=== PATIENT | male | born 1970 | race Caucasian/White ===

== ENCOUNTER → 2017-09-24 | Outpatient (CLI) | payer OTHER ==
--- NOTE | 2017-09-24 10:38 | DIAGNOSTIC IMAGING REPORT ---
CYSTOGRAM CLINICAL HISTORY: Colovesical fistula COMPARISON STUDY: None FLUOROSCOPY TIME: 1 minute. NUMBER OF FLUOROSCOPIC IMAGES: 9 FINDINGS: The bladder was filled utilized the patient's indwelling Deutsch catheter. Water-soluble contrast was utilized. Imaging was performed in the AP and lateral projections. There was no extravasation. There is no reflux. There were no findings to indicate a colovesical fistula. IMPRESSION: No cystographic evidence of a colovesical fistula Electronically signed by: Mick Rios M.D. 09/24/2017 10:37 AM Dictated Date/Time: 09/24/2017 10:35 AM
== END | disposition home or self-care (01) ==
LOC: C.RAD 09:57
PROVIDERS: ATTEND Colon & Rectal Surgery
DX: Z09 Encounter for follow-up examination after completed treatment for conditions other than malignant neoplasm (principal); Z98.890 Other specified postprocedural states